=== PATIENT | male | born 1945 | race Hispanic/Latino ===

== ENCOUNTER → 2019-03-30 | Outpatient (CLI) | payer MEDICARE ==
[~2019-03-30] MED LIST: ASPI-1012 PO; ATOR40TA69 PO; CLOP75TA14 PO
== END | disposition home or self-care (01) ==
LOC: RAH 08:34
PROVIDERS: ATTEND Internal Medicine Cardiovascular Disease
DX: Z01.810 Encounter for preprocedural cardiovascular examination (principal); I25.10 Atherosclerotic heart disease of native coronary artery without angina pectoris; I34.0 Nonrheumatic mitral (valve) insufficiency
CPT/HCPCS: 93306

== ENCOUNTER → 2019-04-03 | Outpatient (CLI) | payer MEDICARE ==
[~2019-04-03] VITALS: Ht 170.2 cm; Wt 56.7 kg
[~2019-04-03] MED LIST changes: +REGADENOSON 0.4 MG/5 ML PF SYG IVP SCH
== END ==
LOC: SHCH 08:51
PROVIDERS: ATTEND Internal Medicine Cardiovascular Disease
DX: Z01.810 Encounter for preprocedural cardiovascular examination (principal); I25.10 Atherosclerotic heart disease of native coronary artery without angina pectoris; R06.00 Dyspnea, unspecified
CPT/HCPCS: 78452; 93017; 96374; A9500 ×2; J2785

== ENCOUNTER → 2019-05-17 | Outpatient (CLI) | payer MEDICARE ==
[~2019-05-17] MED LIST changes: -REGADENOSON 0.4 MG/5 ML PF SYG IVP SCH
== END | disposition home or self-care (01) ==
LOC: RAH 11:28
PROVIDERS: ATTEND Neuromusculoskeletal Medicine & OMM
DX: I65.21 Occlusion and stenosis of right carotid artery (principal)
CPT/HCPCS: 93880

== ENCOUNTER 2025-01-04 15:39 | Observation (INO) | payer OTHER, MEDICARE ==
[~2025-01-04] VITALS: Ht 167.6 cm; Wt 56.7 kg
[~2025-01-04 15:39] MED LIST changes: +CLOP-31 PO; -CLOP75TA14 PO
--- NOTE | 2025-01-04 15:54 | NUR ---
DR. SHERIFF MARTINEZ AT BEDSIDE WITH PT
[2025-01-04 16:00] LABS: BASOPHILS # (AUTO) 0.06 K/uL (0.00-0.20); BASOPHILS % (AUTO) 0.4 % (0.0-5.0); EOSINOPHILS # (AUTO) 0.49 K/uL (0.00-0.70); EOSINOPHILS % (AUTO) 2.9 % (0.0-8.0); HEMATOCRIT 36.7 % (42-54); LYMPHOCYTES # (AUTO) 3.1 K/uL (1.0-4.8); LYMPHOCYTES % (AUTO) 18.3 % (21.0-51.0); MEAN CORPUSCULAR HEMOGLOBIN 31.6 pg (27.0-33.0); MEAN CORPUSCULAR HGB CONC 32.4 g/dL (32.0-36.0); MEAN CORPUSCULAR VOLUME 97.3 fL (79-99); MONOCYTES # (AUTO) 1.3 K/uL (0.1-1.0); MONOCYTES % (AUTO) 7.6 % (3.0-13.0); NEUTROPHILS # (AUTO) 11.8 K/uL (1.8-7.7); NEUTROPHILS % (AUTO) 70.2 % (40.0-77.0); PLATELET COUNT (AUTO) 300 K/uL (130-400); RED BLOOD CELL COUNT(AUTO) 3.77 MIL/uL (4.50-6.20); RED CELL DISTRIBUTION WIDTH 15.1 % (11.0-15.5); WHITE BLOOD COUNT (AUTO) 16.8 K/uL (4.8-10.8)
[2025-01-04 16:10] LABS: CREATININE 0.9 mg/dL (0.5-1.3); POTASSIUM 4.1 mmol/L (3.5-5.1)
--- NOTE | 2025-01-04 16:10 | ERN ---
ED Note History of Present Illness Stated Complaint: HEMATOMA Chief Complaint: Wound Check Time Seen by MD: 15:45 Dictation: This is an 79-year-old male who was sent from outpatient cardiology director of labor and delivery by Dr. Kearney for evaluation of bleeding in the inguinal area postprocedure. Johnna cleveland apparently had no history of coronary artery disease except for peripheral arterial disease and underwent a peripheral arteriogram and a procedure done from left femoral artery to fix right SFA. Patient had a very small hematoma on was doing fairly well however developed a severe coughing spell in the left groin popped and enlarged hematoma with a concern for pseudo aneurysm. Bedside evaluation with ultrasound was negative for any pseudo aneurysm. As per Dr. Kearney's report, Dr. Varela, Cardiothoracic surgeon has already been consulted for a possible need for surgical intervention in case of expanding hematoma or pseudo aneurysm. Heart rate 79 respiratory rate 19 blood pressure 112/59 with a pulse oximetry of 95% on room air His chronic medical problems include history of hypertension and peripheral arterial disease and hypercholesterolemia Allergies: Coded Allergies: No Known Allergies (Verified Allergy, Unknown, 03/15/19) Home Meds Active Scripts Aspirin (ASPIRIN) 325 Mg Tablet, 325 MG PO DAILY for 30 Days, #30 TAB Prov:MARINO STACK Torri [facility] 03/18/19 Atorvastatin Calcium (LIPITOR) 40 Mg Tablet, 40 MG PO DAILY for 30 Days, #30 TAB Prov:STACK,MARINO BOCANEGRAP 03/18/19 Clopidogrel Bisulfate (Plavix) 75 Mg Tablet, 75 MG PO DAILY for 15 Days, #15 TAB Prov:MARINO STACK Torri [facility]OC[facility]GR[facility] 03/18/19 Past Medical History Past Medical History: High Cholesterol, Hypertension Surgical History: Other Surgical History Other: NECK Family History: Negative Social History: Smokers, ETOH, Negative RN Note Reviewed/Agreed w/PFSH: Yes Review of System Dictation Constitutional: Negative for fever,chills, and weight loss Eyes: Negative for injury, pain,redness, and discharge ENT: Negative for injury,pain or swelling Cardiovascular: Negative for chest pain, palpitations, and edema Respiratory: Negative for shortness of breath, cough, and wheezing, Abdomen/GI: Negative for abdominal pain, nausea, vomiting, diarrhea, and constipation Back: Negative for injury and pain : Negative for injury, bleeding and discharge MS/Extremity: Negative for injury and deformity left groin pain and swelling Skin: Negative for rash, and discoloration Neuro: Negative for headache, weakness, numbness, tingling, and seizure Psych: Negative for suicide ideation, homicidal ideation, and hallucinations Initial Vital Sign VS Vital Signs Date Time Temp Pulse Resp B/P (MAP) Pulse Ox O2 Delivery O2 Flow Rate FiO2 01/04/25 15:40 79 19 110/59 95 Room Air 0 01/04/25 15:45 97.3 21 Physical Exam Dictation General: awake, alert, NAD Head/Face: Normocephalic, atraumatic Eyes: PERRL, EOMI, vision at baseline ENT: oral cavity clear, TMs clear, no signs of infection Neck: Trachea midline, supple, no nuchal rigidity Cardiovascular: RRR, normal S1/S2, No MRGs, no JVD Respiratory: CTAB, no respiratory distress, No rales or wheezes Abdomen: Soft, non-tender, non-distended, normal bowel sounds, no guarding or rebound. Skin: Warm, dry, normal turgor, no rash MS/Extremity: Pulses 1+ in the left foot both feet cold to touch, no cyanosis, neurovascular intact, FROM left inguinal area pressure dressing in place left thigh slightly bigger than the right thigh. Neuro: COAx4, GCS 15, strength 5/5, CN 2-12 intact, normal cerebellar exam, normal gait, Psych: Normal behavior, mood, and affect normal Extremities-trace edema without any palpable cords, Homans sign is negative Results (Laboratory/Radiology) Laboratory/Radiology Laboratory Tests Test 01/04/25 15:53 01/04/25 17:24 White Blood Count 16.8 K/uL (4.8-10.8) H Red Blood Count 3.77 MIL/uL (4.50-6.20) L Hemoglobin 11.9 g/dL (14.0-18.0) L 11.9 g/dL (14.0-18.0) L Hematocrit 36.7 % (42-54) L 37.6 % (42-54) L Mean Corpuscular Volume 97.3 fL (79-99) Mean Corpuscular Hemoglobin 31.6 pg (27.0-33.0) Mean Corpuscular Hemoglobin Concent 32.4 g/dL (32.0-36.0) Red Cell Distribution Width 15.1 % (11.0-15.5) Platelet Count 300 K/uL (130-400) Mean Platelet Volume 9.8 fL (7.5-10.5) Immature Granulocyte % (Auto) 0.6 % (0-1) Neutrophils (%) (Auto) 70.2 % (40.0-77.0) Lymphocytes (%) (Auto) 18.3 % (21.0-51.0) L Monocytes (%) (Auto) 7.6 % (3.0-13.0) Eosinophils (%) (Auto) 2.9 % (0.0-8.0) Basophils (%) (Auto) 0.4 % (0.0-5.0) Neutrophils # (Auto) 11.8 K/uL (1.8-7.7) H Lymphocytes # (Auto) 3.1 K/uL (1.0-4.8) Monocytes # (Auto) 1.3 K/uL (0.1-1.0) H Eosinophils # (Auto) 0.49 K/uL (0.00-0.70) Basophils # (Auto) 0.06 K/uL (0.00-0.20) Absolute Immature Granulocyte (auto 0.10 K/uL (0-1) Nucleated Red Blood Cells 0.0 % (0.0-0.19) Prothrombin Time 12.5 SEC (9.6-11.6) H Prothromb Time International Ratio 1.20 (0.85-1.15) H Activated Partial Thromboplast Time 22.2 SEC (26.3-35.5) L Sodium Level 140 mmol/L (136-145) Potassium Level 4.1 mmol/L (3.5-5.1) Chloride Level 108 mmol/L (101-111) Carbon Dioxide Level 24 mmol/L (21-32) Blood Urea Nitrogen 22 mg/dL (7-18) H Creatinine 0.9 mg/dL (0.5-1.3) Glomerular Filtration Rate Calc 86 mL/min (>90) Random Glucose 150 mg/dL (70-105) H Total Calcium 8.0 mg/dL (8.5-10.1) L Total Creatine Kinase 85 U/L (21-232) # Troponin I High Sensitivity 27 ng/L (4-75) B-Type Natriuretic Peptide 45 pg/mL (0-100) Labs Reviewed?: Yes EKG Comment: Twelve lead EKG done on 01/04/2025 at 3:46 p.m. shows a heart rate of 85, GA interval 135, QRS duration 134, QT/QTC 401/477. Impression normal sinus rhythm with no acute ST-T elevations noted. Right bundle branch block. EKG rhythm strip shows a normal sinus rhythm with no acute STT wave changes. Interpreted by ER MD Dr. Mendes ED Course ED Course Orders Procedure Category Date Status Time Cbc With Differential LAB 01/04/25 Complete 15:49 B-Type Natriuretic LAB 01/04/25 Complete Peptide 15:49 Chest 1vw RAD 01/04/25 Resulted 15:49 12 Lead Ekg Tracing- EKG 01/04/25 Logged Technical 15:49 Creatine Kinase, Total LAB 01/04/25 Complete 15:49 Troponin I High LAB 01/04/25 Complete Sensitivity 15:49 Basic Metabolic Panel LAB 01/04/25 Complete 15:49 Echo 2-D Complete ECHO 01/04/25 Taken 15:52 Us Soft Tissue Groin US 01/04/25 Resulted 15:52 Pt And Ptt LAB 01/04/25 Complete 15:55 Type And Screen BBK 01/04/25 Complete 16:13 Obtain Consent For: CPOE 01/04/25 Transmitted 16:33 Hemoglobin And LAB 01/04/25 Complete Hematocrit 16:45 Us Soft Tissue Groin US 01/05/25 Verified 06:00 *Nursing CPOE 01/04/25 Transmitted Communication: 18:00 Activity: Bedrest CPOE 01/04/25 Transmitted Until The Am 18:41 Edm Admit Bridge Order ADM 01/04/25 Transmitted 18:39 Vital Signs Date Time Temp Pulse Resp B/P (MAP) Pulse Ox O2 Delivery O2 Flow Rate FiO2 01/04/25 15:45 97.3 59 16 115/59 98 Room Air* 0 21 01/04/25 15:40 79 19 110/59 95 Room Air 0 We will perform diagnostic labs, advanced imaging and administer medications according to the patient's complaint. Once the results are available, will review and personally interpreted the labs to rule out any acute life- threatening emergency the trach require immediate intervention and treatment. I will then re-evaluate the patient after treatment and diagnostic exams have return to determine whether the patient requires any further testing, can safely be discharged home or need further admission to hospital for additional treatment and evaluation. 5:02 p.m. CBC showed a white count of 16.8 hemoglobin of 11.9 platelets 308 BNP 7 and chest x-ray are pending As per Dr. Kearney's recommendation patient will be admitted to the hospital to intensive care unit for serial hemoglobins and transfusion as needed for hematoma in the left inguinal area. 6:40 p.m. patient accepted by tom mid-level provider for hospitalist group for admission and further management to intensive care unit Medical Decision Making MDM MDM: Differential diagnosis: Rationale: Tests considered and ordered secondary to shared decision making include: labs, ECG and radiology Previous outside records reviewed: Old ER visits. Risk of complication and/or morbidity or mortality of patient management: None Medications-Per medication reconciliation Need for hospitalization: Patient does meet criteria for hospitalization. Need for emergency major/minor surgery: No There are no social concerns with this patient. Prescription drug management Prescriptions will include symptomatic care Patient's prior external medical records from other ER visits were reviewed by me as indicated. Prior testing and results from previous visits were reviewed. Prior tests were taken into account with medical decision making and resource utilization, independent historian/historians were used to obtain complete medical history. I independently interpreted the test that were performed, results were reviewed by me and considered findings on radiology if ordered. Medical management and examination interpretation discussions were had by me with other qualified healthcare professionals as indicated for the patient's care. Problem List Problem List: (1) Hematoma of left thigh (2) Peripheral arterial disease (3) History of intravascular stent placement (4) Tobacco abuse (5) Alcohol use DX & DISP Disposition: Inpatient Decision to Admit Time: 17:06 Departure Impression: Primary Impression: Hematoma of left thigh Additional Impressions: Peripheral arterial disease, History of intravascular stent placement, Tobacco abuse, Alcohol use Condition: Stable Additional Instructions: Patient was informed of all the diagnostic labs and procedures conducted in the emergency room today and demonstrated understanding of the results. I personally reviewed and interpreted all the diagnostic exams performed in the ER today. The patient will be admitted to the hospital for further treatment and evaluation. Disposition-admit to facility Condition-stable/guarded Course-uncertain at this time Pain status-decreased Assessment-exam unchanged Admission Certification- I certify that the patients status is appropriate and is based on my best clinical judgment and the patient's condition as documented in the medical records Referrals: SELF,REFERRAL (PCP) SUDHA MENDES MD Jan 04, 2025 16:10
[2025-01-04 16:18] LABS: B-TYPE NATRIURETIC PEPTIDE 45 pg/mL (0-100)
--- NOTE | 2025-01-04 16:24 | HMCIMG ---
Exam Type: US SOFT TISSUE GROIN Clinical Information: HEMATOMA S/P ANGIOGRAM Comparison: None Findings and impression: Left groin hematoma 3.4 x 2.7 cm. No other abnormalities.
[2025-01-04 16:30] LABS: INR 1.2 (0.85-1.15); PROTHROMBIN TIME 12.5 SEC (9.6-11.6)
[2025-01-04 16:31] LABS: PARTIAL THROMBOPLASTIN TIME 22.2 SEC (26.3-35.5)
--- NOTE | 2025-01-04 16:50 | HMCIMG ---
Exam Type: CHEST 1VW Clinical Information: post op bleeding groin Comparison: None Findings: The lungs are clear of infiltrates. The heart is normal in size. The bony and soft tissue structures of the chest are unremarkable. Impression: Clear lungs.
[2025-01-04 17:28] LABS: HEMATOCRIT 37.6 % (42-54)
--- NOTE | 2025-01-04 17:28 | NUR ---
DR. GARCIA AT BEDSIDE FOR EVAL, PER MD, NO NEED TO TAKE PT TO THE OR AT THIS TIME.
--- NOTE | 2025-01-04 17:30 | NUR ---
PER DR. ELDRIDGE, TRANSFUSE 1 UNIT FOR HGB LESS THAN 10
--- NOTE | 2025-01-04 17:57 | NUR ---
DOPPLER PULSE HEARD ON LEFT DORSALIS PEDIS, SITE MARKED
--- NOTE | 2025-01-04 18:47 | HP ---
[facility] PHYSICAL Date of Service: Jan 04, 2025 Time of Service: 18:47 PCP: Cruzito Cardona HISTORY OF PRESENT ILLNESS: This is an 79-year-old male with past medical history of hyperlipidemia and hypertension who was brought to ER from outpatient cardiology lab tech for evaluation of left inguinal bleeding after patient underwent a right SFA recanalization and balloon angioplasty today performed by .After the procedure patient was in cathlab recovery ,reportedly patient developed coughing episode and left groin started bleeding,pressure was applied and patient was transferred to ER ,thus prompted this admission. Seen and examined patient in the ER awake,alert ,coherent and appears comfortable.Patient denies chest pain,palpitation,shortness of breath .Left groin remained stable,no active bleeding at this time. Latest vital signs temperature 97.3, heart rate 59, blood pressure 115/59 saturation 98% on room air. Labs: WBC 16.8, hemoglobin 11.9, hematocrit 36 platelet count 300. BUN 22, creatinine 0.9, GFR 86 glucose 150 total calcium eight troponin 27 BNP 45. Ultrasound of the left groin soft tissue reveals left groin hematoma 3.4 x 2.7 cm. No other abnormalities. Chest x-ray result is normal. Echocardiogram result still pending at this time. We will admit patient for further medical management. REVIEW OF SYSTEMS CONSTITUTIONAL: Denies fevers, chills, or night sweats. No unintentional weight loss reported. NEUROLOGICAL: Denies headache, amaurosis fugax, motor weakness, sensory deficit, vertigo/spinning sensation, gait abnormalities, or tremors. ENT: No hearing loss, otalgia, otorrhea, rhinitis, rhinorrhea, hoarseness, or sore throat. CARDIOVASCULAR: Denies any exertional angina, dyspnea on exertion, orthopnea, paroxysmal nocturnal dyspnea, palpitations, life-threatening arrhythmias, claudication. PULMONARY: Denies any shortness of breath, cough, phlegm/sputum, hemoptysis, pleuritic chest pain. SLEEP: Denies morning headaches, daytime somnolence or napping. Denies difficulty falling asleep, staying asleep, waking from sleep. Denies knowledge of snoring. GASTROINTESTINAL: Denies any type of dysphagia to either liquids or solids. Denies nausea, vomiting, pyrosis, early satiety, abdominal pain, diarrhea, constipation, or changes in stool consistency or caliber. Denies coffee-ground emesis, hematemesis, hematochezia, or melanotic stools. GENITOURINARY: Denies frequency, urgency, nocturia, hematuria or incontinence (Storage/Irritative symptoms.) Low urinary stream, straining to void, urinary intermittency or hesitancy, splitting of the voiding stream, terminal dribbling. ENDOCRINOLOGIC: Denies polyuria, polydipsia, polyphagia or heat/cold intolerances. HEMATOLOGIC: Denies thrombophilia/previous clots, or coagulopathy/bleeding disorders. ONCOLOGIC: Denies personal history of malignancy. DERMATOLOGIC: Denies rashes or pruritus. PSYCHIATRIC: Denies any suicidal or homicidal ideation. Denies hallucinations. PAST MEDICAL HISTORY: [ Hypertension and hyperlipidemia] PAST SURGICAL HISTORY: [ Right neck surgery ] PAST SOCIAL HISTORY: [Patient lives with . Patient admits to smoking six cigarettes per day and drinks six beers per week denies recreational drug use ] FAMILY HISTORY: [ Cancer] Coded Allergies: No Known Allergies (Verified Allergy, Unknown, 03/15/19) PHYSICAL EXAM GENERAL APPEARANCE: The patient is awake, alert, and oriented, in no acute cardiopulmonary distress. NEUROLOGICAL: Cranial nerves II-XII grossly intact. Motor is 5/5 in bilateral upper and lower extremities proximal to distal. No sensory deficits. HEENT: Face is symmetric. Pupils are equal and reactive. Extraocular movements are intact. NECK: Supple. No JVD. No thyromegaly. No submental, submandibular, pre- /postauricular, occipital or supraclavicular lymphadenopathy. CHEST: Normal chest expansion. No Telemetry. LUNGS: Absence of any rales, rhonchi or any wheezing. CARDIOVASCULAR: Regular. S1 and S2 normal. No appreciable rubs, murmurs or gallops. ABDOMEN: Soft, nontender, and nondistended. There is no rebound, voluntary guarding, or rigidity. : Deferred. No Flores. EXTREMITIES: Non-edematous and not cyanotic. No clubbing. Good capillary refill. SKIN: No skin breakdown. Vital Sign (Last 24 Hours) 01/04/25 15:45 Temp 97.3 Pulse 59 Resp 16 B/P (MAP) 115/59 Pulse Ox 98 O2 Delivery Room Air* O2 Flow Rate 0 FiO2 21 LABS: Laboratory: Test 01/04/25 17:24 01/04/25 15:53 Range/Units Hemoglobin 11.9 L 14.0-18.0 g/dL Hematocrit 37.6 L 42-54 % White Blood Count 16.8 H 4.8-10.8 K/uL Red Blood Count 3.77 L 4.50-6.20 MIL/uL Mean Corpuscular Volume 97.3 79-99 fL Mean Corpuscular Hemoglobin 31.6 27.0-33.0 pg Mean Corpuscular Hemoglobin Concent 32.4 32.0-36.0 g/dL Red Cell Distribution Width 15.1 11.0-15.5 % Platelet Count 300 130-400 K/uL Mean Platelet Volume 9.8 7.5-10.5 fL Immature Granulocyte % (Auto) 0.6 0-1 % Neutrophils (%) (Auto) 70.2 40.0-77.0 % Lymphocytes (%) (Auto) 18.3 L 21.0-51.0 % Monocytes (%) (Auto) 7.6 3.0-13.0 % Eosinophils (%) (Auto) 2.9 0.0-8.0 % Basophils (%) (Auto) 0.4 0.0-5.0 % Neutrophils # (Auto) 11.8 H 1.8-7.7 K/uL Lymphocytes # (Auto) 3.1 1.0-4.8 K/uL Monocytes # (Auto) 1.3 H 0.1-1.0 K/uL Eosinophils # (Auto) 0.49 0.00-0.70 K/uL Basophils # (Auto) 0.06 0.00-0.20 K/uL Absolute Immature Granulocyte (auto 0.10 0-1 K/uL Nucleated Red Blood Cells 0.0 0.0-0.19 % Prothrombin Time 12.5 H 9.6-11.6 SEC Prothromb Time International Ratio 1.20 H 0.85-1.15 Activated Partial Thromboplast Time 22.2 L 26.3-35.5 SEC Sodium Level 140 136-145 mmol/L Potassium Level 4.1 3.5-5.1 mmol/L Chloride Level 108 101-111 mmol/L Carbon Dioxide Level 24 21-32 mmol/L Blood Urea Nitrogen 22 H 7-18 mg/dL Creatinine 0.9 0.5-1.3 mg/dL Glomerular Filtration Rate Calc 86 >90 mL/min Random Glucose 150 H 70-105 mg/dL Total Calcium 8.0 L 8.5-10.1 mg/dL Total Creatine Kinase 85 # 21-232 U/L Troponin I High Sensitivity 27 4-75 ng/L B-Type Natriuretic Peptide 45 0-100 pg/mL DIAGNOSTICS / RADIOLOGY: [ ] ASSESSMENT: Left groin hematoma status post SFA and 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 bid for GI prophylaxis We will replace electrolytes as needed per protocol May continue oxygen supplementation to keep saturation above 92% We will add prn medication for fever,pain,cough , nausea and vomiting We will reconcile home meds once medlist available We will obtain neuro vascular check q.4 hours We will seek Cardiology consultation We will request labs in am Further orders to follow depending on above results Case discussed with attending physician and came up with above treatment and plan of care. ADVANCED CARE PLANNING 1. Which of the following were discussed? Hospice Care - No Therapeutic options - Yes Advance Directives - No Other discussions - 2. Discussed with who? Patient 3. Voluntary nature of this service was explained to the patient? Yes 4. Amount of time spent - __25 5. Reviewed by Physician? (if this service was performed by NPP) Yes Patient seen and examined by me. Agree with note by PROJECT MANAGER ENTERTAINMENT AND MEDIA SEE ADDITIONAL ORDERS PER CHART DISCUSSED WITH NURSING STAFF BEAN ZAVALA AFTER SCHOOL CAREGIVER Jan 04, 2025 18:47
--- NOTE | 2025-01-04 18:59 | CONS ---
REASON FOR CONSULTATION: To evaluate groin hematoma. HISTORY OF PRESENT ILLNESS: The patient is an 79-year-old gentleman who is actually well known to me. He has a history of hypertension, vascular disease, and wrist claudication in the right lower extremity and left lower extremity as well, but right was worse. The patient has a history of hypertension. He does not really have any cardiac history per se. He was otherwise doing well. He underwent arterial Doppler, which showed a right SFA occlusion with monophasic waveform distally. He underwent right SFA recanalization with balloon angioplasty. Following this, the patient did well. He was in pathology laboratory technologist holding area, but unfortunately, he started coughing and blurring in the left groin. We held pressure on him and transferred him [place] [facility] [place] [facility] [place] I did an ultrasound of the left groin. There was no pseudoaneurysm. Hemoglobin has been stable between 11 and 12. The hematoma in the left groin has been stable as well and the patient is now almost asymptomatic. REVIEW OF SYSTEMS: GENERAL: No history of weight loss or weight gain. LUNGS: No history of cough or sputum. CARDIOVASCULAR: As above. PAST MEDICAL HISTORY AND PAST SURGICAL HISTORY: As mentioned above. PHYSICAL EXAMINATION: GENERAL: An 79-year-old male, alert and oriented x 3. No pallor, no cyanosis, no jaundice. No lymphadenopathy. No pitting edema. VITAL SIGNS: Pulse is 81. Blood pressure is 132/62. HEENT: Normocephalic and atraumatic. Pupils are equal, reactive to light. NECK: Supple. No thyromegaly. No carotid bruit, no neck masses. LUNGS: Mostly clear to percussion and auscultation. CARDIOVASCULAR: Peripheral pulses are diminished. Dorsalis pedis is 2+ in the left foot and right foot is also present 1+. No groin bruit. No abdominal bruit. No carotid bruit. No JVD. S1 and S2 is heard. There is no S3, no S4. No murmurs, no rubs, no other adventitious sounds. ABDOMEN: Benign. SWIMMING COACH OR INSTRUCTOR: Nonfocal examination. EXTREMITIES: No pitting edema. Left groin has a hematoma that measures about 7 x 8 inches. 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 * Left groin hematoma. * No evidence of pseudoaneurysm. * History of hypertension. RECOMMENDATION: * I will keep him overnight and we will watch him overnight carefully. * We will repeat a hemoglobin. I will repeat an ultrasound of the left groin tomorrow to make sure there is no developing pseudoaneurysm as well. * If the patient is stable overnight and the hematoma is stable or resolved, then I will send him home hopefully tomorrow afternoon. Further recommendations will be based on how the patient does. TID: [id number] RECEIPT: [id number]
--- NOTE | 2025-01-04 19:00 | NUR ---
PT CONTINUES WITH FEM STOP PER DR. GARCIA. NO SIGNS OF HEMATOMA EXPANSION TO LEFT GROIN. LEFT FOOT CONTINUES COOL TO TOUCH AT PT BASELINE. SENSATION INTACT, PULSE HEARD WITH DOPPLER.
[2025-01-04] MEDS ORDERED: acetaMINOPHEN 325 MG TAB PO PRN ×2 (20:00)
[2025-01-04] MEDS ORDERED: guaiFENesin-DM 200/20MG 10ML PO PRN (20:00)
[2025-01-04] MEDS ORDERED: PoTASSium chloRIDE 20MEQ ER 20 MEQ ERTAB PO PRN (20:00)
[2025-01-04] MEDS ORDERED: PoTASSium chl 10% ELIXIR 20MEQ 20 MEQ/15 ML UDCUP PO PRN (20:00)
[2025-01-04] MEDS ORDERED: MAGNESIUM 2GM PREMIX 50ML 50 ML IV PRN (20:00)
[2025-01-04] MEDS ORDERED: PoTASSium chloRIDE 20MEQ/100ML 100 ML IV PRN (20:00)
[2025-01-04] MEDS ORDERED: ondanSETRON 4MG INJ IV PRN (20:00)
[2025-01-04] MEDS: FAMOTIDINE 20MG TAB PO SCH (20:57)
[2025-01-04 21:54] LABS: HEMATOCRIT 31.5 % (42-54)
--- NOTE | 2025-01-04 23:31 | NUR ---
REPORT GIVEN TO CHOCO ROSAS ALL QUESTIONS ANSWERED AT THIS TIME. RN EXPECTING PT ARRIVAL TO THE UNIT
[2025-01-04 23:40] VITALS: O2SAT 98
--- NOTE | 2025-01-04 23:40 | NUR ---
Pt arrived to 226 from ER via stretcher. Transferred pt to bed. Educated pt and family in use of call light and to not have pt get out of bed as they are on strict bedrest tonight, verbalized understanding. Left bed low, locked, rails upx2, and call light in reach.
[2025-01-05] VITALS (11 sets, daily range): BP systolic 107–142; BP diastolic 42–74; PULSE 66–109; RESP 16–20; TEMP 98.2–98.6; O2SAT 96–99
[2025-01-05 00:43] LABS: HEMATOCRIT 32.1 % (42-54)
[2025-01-05 04:03] LABS: BASOPHILS # (AUTO) 0.03 K/uL (0.00-0.20); BASOPHILS % (AUTO) 0.2 % (0.0-5.0); EOSINOPHILS # (AUTO) 0.17 K/uL (0.00-0.70); EOSINOPHILS % (AUTO) 1.2 % (0.0-8.0); HEMATOCRIT 29.9 % (42-54); IMMATURE GRANULOCYTE ABSOLUTE 0.08 K/uL (0-1); LYMPHOCYTES # (AUTO) 1.2 K/uL (1.0-4.8); LYMPHOCYTES % (AUTO) 8.2 % (21.0-51.0); MEAN CORPUSCULAR HEMOGLOBIN 31.1 pg (27.0-33.0); MEAN CORPUSCULAR HGB CONC 32.8 g/dL (32.0-36.0); MEAN CORPUSCULAR VOLUME 94.9 fL (79-99); MONOCYTES # (AUTO) 1.1 K/uL (0.1-1.0); MONOCYTES % (AUTO) 7.6 % (3.0-13.0); NEUTROPHILS # (AUTO) 12.1 K/uL (1.8-7.7); NEUTROPHILS % (AUTO) 82.3 % (40.0-77.0); PLATELET COUNT (AUTO) 226 K/uL (130-400); RED BLOOD CELL COUNT(AUTO) 3.15 MIL/uL (4.50-6.20); RED CELL DISTRIBUTION WIDTH 15.1 % (11.0-15.5); WHITE BLOOD COUNT (AUTO) 14.7 K/uL (4.8-10.8)
[2025-01-05 04:16] LABS: ALBUMIN 2.9 g/dL (3.5-5.0); BILIRUBIN,TOTAL 1.4 mg/dL (0.2-1.0); CREATININE 0.8 mg/dL (0.5-1.3); MAGNESIUM 1.7 mg/dL (1.80-2.40); POTASSIUM 3.4 mmol/L (3.5-5.1); TOTAL PROTEIN, SERUM 5.7 g/dL (6.0-8.3)
[2025-01-05 04:30] LABS: INR 1.16 (0.85-1.15); PROTHROMBIN TIME 12.1 SEC (9.6-11.6)
[2025-01-05 04:31] LABS: PARTIAL THROMBOPLASTIN TIME 27.5 SEC (26.3-35.5)
[2025-01-05] MEDS ORDERED: acetaMINOPHEN 325 MG TAB PO ONE (05:30)
[2025-01-05] MEDS ORDERED: DiphenhydrAMINE HCL 25 MG CAPSULE PO ONE (05:30)
--- NOTE | 2025-01-05 06:36 | EKG ---
[facility] Test Date: 2025-01-04 Test Time: 15:46:50 Pat Name: ROSENDO VEGA Department: [facility] Room: 226 1 Gender: M Delivery Rn: 08Teodoro : 1945 Requested By: SUDHA PARHAM Order Number: [id number] Reading MD: Cresencio Champagne Measurements Intervals [place] Rate: 85 P: 79 DC: 135 QRS: 61 QRSD: 134 T: 70 QT: 401 QTc: 477 Interpretive Statements Sinus rhythm Right bundle branch block Compared to ECG 03/15/2019 18:57:41 Sinus bradycardia no longer present Short DC interval no longer present Electronically Signed On 01-05-2025 10:16:17 CDT by Cresencio Champagne Please click the below link to view image of tracing.
[2025-01-05] MEDS ORDERED: ALBU90AE IH (08:02)
[2025-01-05] MEDS ORDERED: FLUT1BLS3 IH (08:02)
[2025-01-05] MEDS ORDERED: LINA290C PO (08:02)
[2025-01-05] MEDS ORDERED: LOSA50TA64 PO (08:02)
[2025-01-05] MEDS ORDERED: LISI1TAB51 PO (08:02)
[2025-01-05] MEDS ORDERED: ATOR10TA69 PO (08:02)
[2025-01-05] MEDS ORDERED: AMLO-257 PO (08:02)
[2025-01-05] MEDS ORDERED: IRON150C5 PO (08:02)
[2025-01-05 09:44] LABS: HEMATOCRIT 29.8 % (42-54); MEAN CORPUSCULAR HEMOGLOBIN 31.5 pg (27.0-33.0); MEAN CORPUSCULAR HGB CONC 33.2 g/dL (32.0-36.0); MEAN CORPUSCULAR VOLUME 94.9 fL (79-99); PLATELET COUNT (AUTO) 235 K/uL (130-400); RED BLOOD CELL COUNT(AUTO) 3.14 MIL/uL (4.50-6.20); RED CELL DISTRIBUTION WIDTH 15.2 % (11.0-15.5); WHITE BLOOD COUNT (AUTO) 14.2 K/uL (4.8-10.8)
--- NOTE | 2025-01-05 09:56 | HMCSR ---
APPROVED REPORT EXAM: Two-dimensional and M-mode echocardiogram with Doppler and color Doppler. INDICATION ICD: Hematoma status post angiogram 2D Dimensions RVDd3.2 cmLVOT diam2.1 (1.8-2.4cm) Aortic Valve AoV Vmax1.7 m/Xavier Peak GR11.6 mmHgLVOT Vmax1.5 m/s AoV VTI0.3 mAo Mean GR6.4 mmHgLVOT VTI0.25 m STEVEN (VMAX)2.94 cm2AVA (VTI) 2.9 cm2 Mitral Valve MV E Vmax73.8 cm/sDECEL Ghsr242 ms MV A Vmax79.0 cm/sP 1/2 T55 ms E/A ratio0.9MVA (PHT)4.0 cm2 TDI E/E' Nmzgsy51.7E/E' Lateral8.8 Medial E' Peak V5.81 cm/sLateral E' Peak V8.37 cm/s Pulmonary Valve PV Vmax1.1 m/sPV VTI0.21 mPV Mean GR2.5 mmHg PV Peak GR4.8 mmHg Tricuspid Valve TR Vmax2.0 m/sRAP (EST) 8 hoDiJZMW22.1 mmHg TR Peak GR16.1 mmHg Left Ventricle The left ventricle is normal size. There is normal LV segmental wall motion. There is boderline left ventricular wall thickness. LVEF is 55%. Indeterminate diastolic dysfunction. Right Ventricle The right ventricle is normal size. Right ventricle mild wall thickness. The right ventricular systol ic function is normal. Atria The left atrium size is normal. The right atrium size is normal. Aortic Valve The aortic valve is normal in structure. No aortic regurgitation is present. There is no aortic valvu lar stenosis. Mitral Valve The mitral valve is normal in structure. There is trace of mitral valve regurgitation noted. There is no mitral valve stenosis. Tricuspid Valve The tricuspid valve is normal in structure. There is trace of tricuspid valve regurgitation noted. Pulmonic Valve The pulmonary valve is normal in structure. There is no pulmonic valvular regurgitation. Great Vessels The aortic root appears normal in size. IVC is not well visualized. Pericardium Hyperreflectant pericardium. There is no pericardial effusion. Prominent anterior epicardial fat pad is present. Other Information Quality : Technically difficult study due to body habitus Conclusion LVEF is 55%. There is no pericardial effusion.
[2025-01-05 10:02] LABS: BAND NEUTROPHILS % (MANUAL) 1 % (0-2); EOSINOPHILS % (MANUAL) 2 % (1-6); LYMPHOCYTES % (MANUAL) 10 % (22-44); MAN.DIFF COMMENT-IMPRESSION MANUAL DIFFERENTIAL; MONOCYTES % (MANUAL) 5 % (2-9); SEGMENTED NEUTROPHILS % 82 % (40-70); TOTAL CELLS COUNTED 100
[2025-01-05 10:03] LABS: PLATELET MORPHOLOGY COMMENT ADEQUATE; WBC MORPHOLOGY CONSISTENT W/DIFF
--- NOTE | 2025-01-05 11:39 | PN ---
[facility] PROGRESS NOTE Date of Service: Jan 05, 2025 Time of Service: 11:35 SUBJECTIVE: [ ] S/P SFA recanalization and balloon angioplasty today performed by .After the procedure patient was in cathlab recovery ,reportedly patient developed coughing episode and left groin started bleeding,pressure was applied and patient was transferred to ER ,thus prompted this admission. 01/05/25 PATIENT IS SEEN AND EXAMINED. PATIENT'S HEMOGLOBIN DROPPED TO 9.9 FROM 11.9 ON ADMISSION. WILL REPEAT CBC AT NOON. WE WILL WAIT FOR HOME ECONOMIST CONSUMER SERVICE'S IF HE IS GOING TO CLEARED PATIENT TO GO HOME. PATIENT DENIED CHEST PAIN OR SHORTNESS FOR BREATH. REVIEW OF SYSTEMS CONSTITUTIONAL: Denies fevers, chills, or night sweats. No unintentional weight loss reported. NEUROLOGICAL: Denies headache, amaurosis fugax, motor weakness, sensory de ficit, vertigo/spinning sensation, gait abnormalities, or tremors. ENT: No hearing loss, otalgia, otorrhea, rhinitis, rhinorrhea, hoarseness, or sore throat. CARDIOVASCULAR: Denies any exertional angina, dyspnea on exertion, orthopnea, paroxysmal nocturnal dyspnea, palpitations, life-threatening arrhythmias, claudication. PULMONARY: Denies any shortness of breath, cough, phlegm/sputum, hemoptysis, pleuritic chest pain. SLEEP: Denies morning headaches, daytime somnolence or napping. Denies difficulty falling asleep, staying asleep, waking from sleep. Denies knowledge of snoring. GASTROINTESTINAL: Denies any type of dysphagia to either liquids or solids. Denies nausea, vomiting, pyrosis, early satiety, abdominal pain, diarrhea, constipation, or changes in stool consistency or caliber. Denies coffee-ground emesis, hematemesis, hematochezia, or melanotic stools. GENITOURINARY: Denies frequency, urgency, nocturia, hematuria or incontinence (Storage/Irritative symptoms.) Low urinary stream, straining to void, urinary intermittency or hesitancy, splitting of the voiding stream, terminal dribbling. ENDOCRINOLOGIC: Denies polyuria, polydipsia, polyphagia or heat/cold intolerances. HEMATOLOGIC: Denies thrombophilia/previous clots, or coagulopathy/bleeding disorders. ONCOLOGIC: Denies personal history of malignancy. DERMATOLOGIC: Denies rashes or pruritus. PSYCHIATRIC: Denies any suicidal or homicidal ideation. Denies hallucinations. PHYSICAL EXAM GENERAL APPEARANCE: The patient is awake, alert, and oriented, in no acute cardiopulmonary distress. NEUROLOGICAL: Cranial nerves II-XII grossly intact. Motor is 5/5 in bilateral upper and lower extremities proximal to distal. No sensory deficits. HEENT: Face is symmetric. Pupils are equal and reactive. Extraocular movements are intact. NECK: Supple. No JVD. No thyromegaly. No submental, submandibular, pre- /postauricular, occipital or supraclavicular lymphadenopathy. CHEST: Normal chest expansion. No Telemetry. LUNGS: Absence of any rales, rhonchi or any wheezing. CARDIOVASCULAR: Regular. S1 and S2 normal. No appreciable rubs, murmurs or gallops. ABDOMEN: Soft, nontender, and nondistended. There is no rebound, voluntary guarding, or rigidity. : Deferred. No Flores. EXTREMITIES: Non-edematous and not cyanotic. No clubbing. Good capillary refill. SKIN: No skin breakdown. Vital Signs (last 8hr) Date Time Temp Pulse Resp B/P (MAP) Pulse Ox O2 Delivery O2 Flow Rate FiO2 01/05/25 07:35 98.2 66 18 107/62 96 01/05/25 07:00 99 Room Air* 0 21 LABS: Laboratory: Test 01/05/25 09:26 01/05/25 03:27 01/04/25 15:53 Range/Units White Blood Count 14.2 H 4.8-10.8 K/uL Red Blood Count 3.14 L 4.50-6.20 MIL/uL Hemoglobin 9.9 L 14.0-18.0 g/dL Hematocrit 29.8 L 42-54 % Mean Corpuscular Volume 94.9 79-99 fL Mean Corpuscular Hemoglobin 31.5 27.0-33.0 pg Mean Corpuscular Hemoglobin Concent 33.2 32.0-36.0 g/dL Red Cell Distribution Width 15.2 11.0-15.5 % Platelet Count 235 130-400 K/uL Mean Platelet Volume 9.9 7.5-10.5 fL Segmented Neutrophils % 82 H 40-70 % Band Neutrophils % 1 0-2 % Lymphocytes % (Manual) 10 L 22-44 % Monocytes % (Manual) 5 2-9 % Eosinophils % (Manual) 2 1-6 % Nucleated Red Blood Cells 0.0 0.0-0.19 % Differential Comment MANUAL DIFFERENTIAL White Cell Morphology Comment CONSISTENT W/DIFF Platelet Morphology Comment ADEQUATE Red Blood Cell Morphology See comments Immature Granulocyte % (Auto) 0.5 0-1 % Neutrophils (%) (Auto) 82.3 H 40.0-77.0 % Lymphocytes (%) (Auto) 8.2 L 21.0-51.0 % Monocytes (%) (Auto) 7.6 3.0-13.0 % Eosinophils (%) (Auto) 1.2 0.0-8.0 % Basophils (%) (Auto) 0.2 0.0-5.0 % Neutrophils # (Auto) 12.1 H 1.8-7.7 K/uL Lymphocytes # (Auto) 1.2 1.0-4.8 K/uL Monocytes # (Auto) 1.1 H 0.1-1.0 K/uL Eosinophils # (Auto) 0.17 0.00-0.70 K/uL Basophils # (Auto) 0.03 0.00-0.20 K/uL Absolute Immature Granulocyte (auto 0.08 0-1 K/uL Prothrombin Time 12.1 H 9.6-11.6 SEC Prothromb Time International Ratio 1.16 H 0.85-1.15 Activated Partial Thromboplast Time 27.5 26.3-35.5 SEC Sodium Level 140 136-145 mmol/L Potassium Level 3.4 L 3.5-5.1 mmol/L Chloride Level 108 101-111 mmol/L Carbon Dioxide Level 26 21-32 mmol/L Blood Urea Nitrogen 21 H 7-18 mg/dL Creatinine 0.8 0.5-1.3 mg/dL Glomerular Filtration Rate Calc 89 >90 mL/min Random Glucose 124 H 70-105 mg/dL Total Calcium 7.6 L 8.5-10.1 mg/dL Magnesium Level 1.70 L 1.80-2.40 mg/dL Total Bilirubin 1.4 H 0.2-1.0 mg/dL Aspartate Amino Transf (AST/SGOT) 13 10-37 U/L Alanine Aminotransferase (ALT/SGPT) 15 12-78 U/L Alkaline Phosphatase 66 50-136 U/L Total Protein 5.7 L 6.0-8.3 g/dL Albumin 2.9 L 3.5-5.0 g/dL Total Creatine Kinase 85 # 21-232 U/L Troponin I High Sensitivity 27 4-75 ng/L B-Type Natriuretic Peptide 45 0-100 pg/mL Current Medications Medications (Trade) Dose Ordered Sig/Yenny Route PRN Reason Start Time Stop Time Status Last Admin Dose Admin Acetaminophen (TYLenol 325MG TAB) 650 mg Q4H PRN PO MILD PAIN (1-3) 01/04/25 20:00 02/03/25 19:59 Acetaminophen (TYLenol 325MG TAB) 650 mg Q6H PRN PO TEMPERATURE GREATER THAN 101.5 01/04/25 20:00 02/03/25 19:59 Famotidine (Pepcid 20mg Tab) 20 mg BID PO 01/04/25 21:00 02/03/25 20:59 01/05/25 10:24 20 MG Guaifenesin/ Dextromethorphan (RobiTUSSin DM 200/20MG 10ML) 10 ml Q4H PRN PO COUGH 01/04/25 20:00 02/03/25 19:59 Magnesium Sulfate 50 ml @ 0 mls/hr PROTOCOL PRN IV OTHER [SEE ORDER COMMENTS] 01/04/25 20:00 02/03/25 19:59 Ondansetron HCl (zoFRAN 4MG INJ) 4 mg Q6H PRN IV NAUSEA/VOMITING 01/04/25 20:00 02/03/25 19:59 Potassium Chloride 100 ml @ 100 mls/hr AD PRN IV POTASSIUM PROTOCOL 01/04/25 20:00 02/03/25 19:59 Potassium Chloride (K-Dur/Klor-Con 20meq) 20 meq AD PRN PO POTASSIUM PROTOCOL 01/04/25 20:00 02/03/25 19:59 Potassium Chloride (KCl 10% Elixir 20meq/15ml) 20 meq AD PRN PO POTASSIUM PROTOCOL 01/04/25 20:00 02/03/25 19:59 DIAGNOSTICS / RADIOLOGY: [ ] ASSESSMENT: Left groin hematoma status post SFA 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 bid for GI prophylaxis We will replace electrolytes as needed per protocol May continue oxygen supplementation to keep saturation above 92% We will continue to monitor H&H trend transfuse if needed to keep hemoglobin above 7.0 reconciled home meds Cardiology consultation will follow recommendation We will request labs in am Further orders to follow depending on above results Case discussed with attending physician and came up with above treatment and plan of care. ATTESTATION BY PHYSICIAN I have seen and examined the patient. I reviewed the documentation, medical decision making, and treatment plan as noted by the mid-level provider above. I agree with the findings and plan of care. FRANCO BAUMAN MD, ELIZABETH NP Jan 05, 2025 11:39
[2025-01-05] MEDS ORDERED: MAGNESIUM 2GM PREMIX 50ML 50 ML IV SCH ×2 (12:00→12:30)
[2025-01-05] MEDS: ALBUTEROL 0.083% 2.5 MG/3 ML INH IH PRN (12:11)
[2025-01-05] MEDS: PoTASSium chloRIDE 20MEQ ER 20 MEQ ERTAB PO ONE ×2 (12:20→12:36)
--- NOTE | 2025-01-05 12:40 | NUR ---
DCP: HOME Pt currently lives at home with . Pt does not have any insecurities with food, group home, and/or utilities. Pt does not have DME, home health, or provider services. Pt is able to complete ADLs independently. PCP is Brendan East and uses [facility] for any RX needs. At [place] pt will return home and family will assist with transportation. Addendum: 01/05/25 at 1242 by ALEXANDR CORDERO SS Amended: Links added.
[2025-01-05] MEDS ORDERED: IOHEXOL 350 MG/ML 100ML INFUS..BTL IV ONE (16:04)
[2025-01-05] MEDS ORDERED: IOHEXOL-350 50ML VIAL IV ONE (16:04)
--- NOTE | 2025-01-05 18:21 | HMCIMG ---
Exam Type: US SOFT TISSUE GROIN Clinical Information: GROIN HEMATOMA SP ANGIOGRAM Comparison: None Findings and impression: Left groin hematoma is seen measuring 3 x 0.8 x 2.5 cm. No pseudoaneurysm is identified.
--- NOTE | 2025-01-05 18:28 | HMCIMG ---
Exam Type: CT angiogram abdomen and pelvis and lower extremities run-off with contrast Exam Type: CT ANGIO ABD AORTA W RUNOFF Clinical Information: LEFT FEMORAL ARTERY PDEUD ANEURYSM Comparison: None Technique: Routine helical scanning at 5mm collimation through the abdomen and pelvis after contrast administration. In addition, sagittal and coronary formations of the abdomen pelvis and surface rendering three-dimensional reconstructions of the abdominal aorta and the bilateral lower extremity arterial system were performed. Findings: The vascular examination demonstrates a hematoma over the left groin anterior to the left common femoral artery without internal flow to suggest pseudoaneurysm. The hematoma measures 2.5 cm in greatest transverse diameter and partially compresses the common femoral vein. The aorta shows atheromatous plaque throughout. Vascularity is preserved except for atheromatous plaque down to the popliteal arteries and trifurcation. On the right side, the interosseous artery and the anterior tibial artery are occluded at or above the ankle level. On the left side, the posterior tibial artery and interosseous artery are similarly occluded. On the left side, very minimal flow is noted to the foot via branches of the anterior tibial artery into the anterior arches. The same is true on the right side but instead of the anterior tibial artery is the posterior tibial artery which demonstrates distal flow with posterior arch feeding. There is no aortic aneurysm. There is no aortic occlusion. There is no dissection. There is no extravasation to suggest laceration or rupture. No evidence of nephro or ureterolithiasis is found. No hydronephrosis or ureteral dilatation is seen. The visualized portion of the stomach is unremarkable. It shows no wall thickening. No gross ulceration is seen. It is not overly distended. There are no surrounding inflammatory changes. No wall lesions are identified to suggest cancer. The visualized portion of the spleen is unremarkable. It is not enlarged. The pancreas shows normal anatomy. It is not fatty replaced. It shows no lesions. The pancreatic duct is not dilated. There is evidence of cholelithiasis. No evidence of acute or chronic inflammation is seen. The adrenal glands are unremarkable. There is no enlargement. No lesions are noted. Liver shows simple cysts of the left lobe. The appendix is unremarkable. It shows no evidence of inflammation. No appendicolith is seen. The small bowel is unremarkable. There is no evidence of dilatation to suggest obstruction. No evidence of adynamic ileus is seen. There is no small bowel wall thickening to suggest enteritis. The colon is unremarkable. The urinary bladder is unremarkable. There is no wall thickening to suggest tumor or inflammation. There are no intraluminal calculi. There are no diverticula. There is no evidence of chronic bladder outlet obstruction. There is no evidence of urinary bladder distention to suggest urinary retention. The other pelvic structures are unremarkable. The bony and vascular structures are unremarkable for the patient's age. IMPRESSION: No pseudoaneurysm. Left common femoral artery hematoma. Peripheral vascular disease as noted. Simple cysts of the liver. Cholelithiasis. This study was performed using dose reduction techniques to include automated exposure control and/or adjustment of the mA and/or kV according to patient size.
--- NOTE | 2025-01-05 21:55 | NUR ---
DISCHARGE PLANNING SPOKE TO DR. Caty ELDRIDGE VIA PHONE, UPDATED ON CT ANGIO RESULTS FROM [facility] TODAY AND CURRENT PT STATUS, NEW ORDERS RECEIVED FOR H/H TO BE DRAWN IN AM, MAY BE DISCHARGED IN AM IF H/H STABLE AND OK WITH PRIMARY MD
[2025-01-06 04:07] VITALS: BP 131/63; PULSE 87; RESP 16; TEMP 98.3
[2025-01-06 05:16] LABS: HEMATOCRIT 30.3 % (42-54)
[2025-01-06 06:54] VITALS: PULSE 89; RESP 20; O2SAT 96
[2025-01-06 07:00] VITALS: BP 129/61; PULSE 87; RESP 19; TEMP 98.1; O2SAT 98
--- NOTE | 2025-01-06 08:18 | DS ---
Discharge Summary Hospital Course Summary: S/P SFA recanalization and balloon angioplasty today performed by .After the procedure patient was in cathlab recovery ,reportedly patient developed coughing episode and left groin started bleeding,pressure was applied and patient was transferred to ER ,thus prompted this admission. 01/05/25 PATIENT IS SEEN AND EXAMINED. PATIENT'S HEMOGLOBIN DROPPED TO 9.9 FROM 11.9 ON ADMISSION. WILL REPEAT CBC AT NOON. WE WILL WAIT FOR TRANSITIONAL STUDIES INSTRUCTOR'S IF HE IS GOING TO CLEARED PATIENT TO GO HOME. PATIENT DENIED CHEST PAIN OR SHORTNESS FOR BREATH. 01/06/25 patient is hemodynamically stable for discharge denied chest pain, shortness a breath, left groin pain, numbness to lower extremities. the patient is ambulating in room anxious to go home. Hemoglobin remained stable. Hematoma to left groin remains the same no bleeding reported overnight. Patient to follow-up with cafe helper's in one-week. 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 IMAGING (S) report attached to summary : MICROBIOLOGY: report attached to summary; ACTIVITY: ab aracelis HOME MEDICATIONS remain the same CHANGES ON HOME MEDICATIONS none NEW MEDICATIONS none TEACHING: fall precautin Emergency instructions: The patient was instructed to present to the nearest Emergency Department or call 911 should their symptoms return or worsen. Discharge Instructions: Item Value Date Time Hemoglobin 9.7 g/dL L 01/06/25 0505 Hematocrit 30.3 % L 01/06/25 0505 Hemoglobin 9.9 g/dL L 01/05/25 0926 Hematocrit 29.8 % L 01/05/25 0926 Hemoglobin 10.4 g/dL L 01/04/25 2148 Hematocrit 31.5 % L 01/04/25 2148 Segmented Neutrophils % 82 % H 01/05/25 0926 Band Neutrophils % 1 % 01/05/25 09 White Blood Count 14.2 K/uL H 01/05/25925 Red Blood Count 3.14 MIL/uL L 01/05/25925 Mean Corpuscular Volume 94.9 fL 01/05/25925 Mean Corpuscular Hemoglobin 31.5 pg 01/05/25925 Mean Corpuscular Hemoglobin Concent 33.2 g/dL 01/05/25925 Red Cell Distribution Width 15.2 % 01/05/25925 Platelet Count 235 K/uL 01/05/25925 Mean Platelet Volume 9.9 fL 01/05/25925 Lymphocytes % (Manual) 10 % L 01/05/25925 Monocytes % (Manual) 5 % 01/05/25925 Eosinophils % (Manual) 2 % 01/05/25925 Nucleated Red Blood Cells 0.0 % 01/05/25925 Differential Comment MANUAL DIFFERENTIAL 01/05/25925 White Cell Morphology Comment CONSISTENT W/DIFF 01/05/25925 Platelet Morphology Comment ADEQUATE 01/05/25925 Red Blood Cell Morphology See comments 01/05/25925 Potassium Level 3.4 mmol/L L 01/05/25326 Chloride Level 108 mmol/L 01/05/25 0327 Sodium Level 140 mmol/L 01/05/25 032 Carbon Dioxide Level 26 mmol/L 01/05/25326 Blood Urea Nitrogen 21 mg/dL H 01/05/25 0327 Creatinine 0.8 mg/dL 01/05/25326 Glomerular Filtration Rate Calc 89 mL/min 01/05/25 032 Random Glucose 124 mg/dL H 01/05/25 0327 Total Calcium 7.6 mg/dL L 01/05/25 0327 Magnesium Level 1.70 mg/dL L 01/05/25 0327 Total Bilirubin 1.4 mg/dL H 01/05/25 0327 Total Protein 5.7 g/dL L 01/05/25 0327 Aspartate Amino Transf (AST/SGOT) 13 U/L 01/05/25 0327 Alanine Aminotransferase (ALT/SGPT) 15 U/L 01/05/25 0327 Alkaline Phosphatase 66 U/L 01/05/25 0327 Albumin 2.9 g/dL L 01/05/25 0327 . Home Medications: Reported Medications Lisinopril/Hydrochlorothiazide (Lisinopril-Hctz 20-12.5 mg Tab) 20 Mg-12.5 Mg Tablet, 1 TAB PO DAILY for 30 Days, #30 TAB 0 Refills 01/05/25 Fluticasone/Umeclidin/Vilanter (Trelegy Ellipta 100-62.5-25) 100-62.5 Blst.w.dev, 1 PUFF IH DAILY for 30 Days, #1 EACH 0 Refills 01/05/25 Linaclotide (Linzess) 290 Mcg Capsule, 1 CAP PO DAILY for 30 Days, #30 CAP 0 Refills 01/05/25 Albuterol Sulfate (Proair Respiclick) 90 Mcg Aer.pow.ba, 2 PUFF IH Q6HPRN PRN for shortness of breath, #1 EACH 0 Refills 01/05/25 Iron Polysaccharides Complex (Ferrex 150) 150 Mg Iron Capsule, 1 CAP PO DAILY for 30 Days, #30 CAP 0 Refills 01/05/25 Atorvastatin Calcium (Atorvastatin Calcium) 10 Mg Tablet, 1 TAB PO DAILY for 30 Days, #30 TAB 0 Refills 01/05/25 Amlodipine Besylate (Amlodipine Besylate) 5 Mg Tablet, 1 TAB PO DAILY for 30 Days, #30 TAB 0 Refills 01/05/25 Losartan Potassium (Losartan Potassium) 50 Mg Tablet, 1 TAB PO DAILY for 30 Days, #30 TAB 0 Refills 01/05/25 Continued Medications: Albuterol Sulfate (Proair Respiclick) 90 Mcg Aer.pow.ba 2 PUFF IH Q6HPRN PRN for shortness of breath, #1 EACH 0 Refills Amlodipine Besylate (Amlodipine Besylate) 5 Mg Tablet 1 TAB PO DAILY for 30 Days, #30 TAB 0 Refills Atorvastatin Calcium (Atorvastatin Calcium) 10 Mg Tablet 1 TAB PO DAILY for 30 Days, #30 TAB 0 Refills Fluticasone/Umeclidin/Vilanter (Trelegy Ellipta 100-62.5-25) 100-62.5 Blst.w.dev 1 PUFF IH DAILY for 30 Days, #1 EACH 0 Refills Iron Polysaccharides Complex (Ferrex 150) 150 Mg Iron Capsule 1 CAP PO DAILY for 30 Days, #30 CAP 0 Refills Linaclotide (Linzess) 290 Mcg Capsule 1 CAP PO DAILY for 30 Days, #30 CAP 0 Refills Lisinopril/Hydrochlorothiazide (Lisinopril-Hctz 20-12.5 mg Tab) 20 Mg-12.5 Mg Tablet 1 TAB PO DAILY for 30 Days, #30 TAB 0 Refills Losartan Potassium (Losartan Potassium) 50 Mg Tablet 1 TAB PO DAILY for 30 Days, #30 TAB 0 Refills ATTESTATION BY PHYSICIAN I have seen and examined the patient. I reviewed the documentation, medical decision making, and treatment plan as noted by the mid-level provider above. I agree with the findings and plan of care. FRANCO BAUMAN MD, ELIZABETH NP Jan 06, 2025 08:18
[2025-01-06] MEDS: hydroCHLOROthiazide 25 MG TABLET PO SCH (08:52)
[2025-01-06] MEDS: IRON POLYSACCHARIDES COMPLEX 150 MG CAPSULE PO SCH (08:52)
[2025-01-06] MEDS: amLODIPine 5 MG TAB PO SCH (08:52)
[2025-01-06] MEDS: LISINOPRIL 20 MG TABLET PO SCH (08:52)
[2025-01-06] MEDS: atorVAStatin 10 MG TABLET PO SCH (08:52)
[2025-01-06] MEDS: LoSARTan 50 MG TABLET PO SCH (08:52)
[2025-01-06] MEDS: (Fluticasone/Umeclidin/Vilanter (Trelegy Ellipta 100-62.5-25MCG) IH SCH (08:57)
[2025-01-06] MEDS: (Linaclotide (Linzess) 1 CAP) PO SCH (08:57)
--- NOTE | 2025-01-06 10:47 | PN ---
SUBJECTIVE: The patient is actually doing much better. He denies any complaints. His left groin hematoma has decreased. OBJECTIVE: VITAL SIGNS: Stable. Heart rate is 70. Blood pressure is 130/70. HEENT: No JVD. LUNGS: Mostly clear. CARDIOVASCULAR: No S3, no S4. ABDOMEN: Benign. CENTRAL NERVOUS SYSTEMS: Nonfocal exam. EXTREMITIES: Pulses are present by palpation in both feet. Left groin hematoma is resolving. There is no bruit. FINAL IMPRESSION: * Status post angioplasty of the right SFA. * Peripheral vascular disease. * History of hypertension. * Left groin hematoma, not requiring transfusion or repair. No evidence of pseudoaneurysm by ultrasound or a CT angiogram that was done. RECOMMENDATIONS: * I will watch the patient overnight. * If hemoglobin is stable in the morning, he should be able to go home. TID: [id number] RECEIPT: [id number]
--- NOTE | 2025-01-06 20:46 | PN ---
TIME: 6:00 p.m. SUBJECTIVE: The patient is an 79-year-old gentleman who is status post left heart catheterization. He then developed a groin hematoma. Cardiovascular surgery was consulted. PHYSICAL EXAMINATION: NEUROLOGIC: Alert and oriented, no deficits. CARDIAC: S1, S2, regular rate and rhythm. EXTREMITIES: Warm and well perfused. There is a groin hematoma that appears to be stable for the last several hours. ASSESSMENT AND PLAN: This is an 79-year-old gentleman status post left heart catheterization with groin hematoma. The hematoma has been stable. There is no evidence of active bleeding at this time. There is no pseudoaneurysm on the ultrasound, so we will continue to monitor. We will intervene if there is any change in the exam or if a pseudoaneurysm develops in the upcoming days. TID: [id number] RECEIPT: [id number]
== END 2025-01-06 11:23 | disposition home or self-care (01) ==
LOC: EDH 15:39 → INTOOBSV 19:40 → EDHIP 19:40 → 2DH 01-05 00:21
PROVIDERS: ADMIT Internal Medicine; ATTEND Internal Medicine
DX: S70.12XA Contusion of left thigh, initial encounter (principal); I73.9 Peripheral vascular disease, unspecified; D64.9 Anemia, unspecified; D72.829 Elevated white blood cell count, unspecified; E83.51 Hypocalcemia; N99.820 Postprocedural hemorrhage of a genitourinary system organ or structure following a genitourinary system procedure; F10.10 Alcohol abuse, uncomplicated; E78.5 Hyperlipidemia, unspecified; R73.9 Hyperglycemia, unspecified; F17.200 Nicotine dependence, unspecified, uncomplicated; I10 Essential (primary) hypertension; Z98.890 Other specified postprocedural states; Z79.899 Other long term (current) drug therapy; X58.XXXA Exposure to other specified factors, initial encounter; Y93.89 Activity, other specified; Y92.89 Other specified places as the place of occurrence of the external cause; Y99.8 Other external cause status; Y90.9 Presence of alcohol in blood, level not specified
CPT/HCPCS: 85014 ×4; 85018 ×4; 99285; 82550; 84484; 80048; 83880; 85025 ×3; 85610 ×2; 85730 ×2; 86850; 86900; 86901; 86923; 36415 ×3; 71045; 93306; 76882 ×2; 93005; 83735; 80053; 75635; 94640; J3475; Q9967 ×2; G0378 ×2